=== PATIENT | male | born 1990 | race Caucasian/White ===

== ENCOUNTER 2016-08-24 19:57 | Emergency (ER) | payer OTHER ==
[~2016-08-24] VITALS: Ht 180.3 cm; Wt 83.6 kg
[~2016-08-24 19:57] MED LIST: ALBUAER19 INH
[2016-08-24 20:12] VITALS: TEMP 37.5; Ht 180.3 cm; Wt 83.6 kg
[2016-08-24] MEDS ORDERED: ACET-1256 PO (20:40)
[2016-08-24] MEDS ORDERED: IBUP-1050 PO (20:40)
[2016-08-24] MEDS ORDERED: OXYCODONE HCL IR 5 MG TAB (IMMEDIATE RELEASE) PO STA (20:47)
--- NOTE | 2016-08-24 21:21 | DIAGNOSTIC IMAGING REPORT ---
L-SPINE MIN 4 VIEWS ROUTINE CLINICAL HISTORY: Low back pain radiating down right lower extremity. COMPARISON: None FINDINGS: Alignment of the lumbar spine is anatomic. Vertebral body heights are maintained. There is no fracture or suspicious lesion. Disc spaces are preserved. IMPRESSION: Unremarkable lumbar spine radiographs. Electronically signed by: Chema Rosenberg M.D. 08/24/2016 9:19 PM Dictated Date/Time: 08/24/2016 9:18 PM
[2016-08-24] MEDS ORDERED: MoRPHine SULFATE 10 MG/ML CARP/VIAL IM STA (21:36)
[2016-08-24] MEDS ORDERED: OXYCODONE IR HOME PACK PO STA (22:27)
[2016-08-24] MEDS ORDERED: OXYC1TAB3 PO (22:30)
[2016-08-24] MEDS ORDERED: PRED50TA PO (22:31)
--- NOTE | 2016-08-24 22:32 | EMERGENCY ROOM VISIT NOTE ---
History First contact with patient: 20:14 Chief Complaint: BACK PAIN Stated Complaint: BACK PAIN History of Present Illness The patient is a 25 year old male who presents to the Emergency Room via private vehicle accompanied by female significant other with complaints of " back pain". 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 About 1 year ago it worsened and then within the past few weeks it is progressively getting worse to a point where he cannot sit or stand or even sleep without pain. He points to the lumbar spine, particularly the right portion as a location of his pain that radiates down the right leg. He rates the pain as a 6 -7/10. He notes associated numbness in the right leg. He is recently moved back from [place], and does not have any primary care here. He currently rates the pain as a 10/10. He denies any fevers, chills, chest pain, shortness of breath, lower extremity weakness, bowel or bladder incontinence, numbness or tingling in the genital region. He additionally notes that he did have an MRI in the past of which she is unsure of the results, and he did perform physical therapy and was to have spinal surgery but this did not go through. He denies any urinary symptoms. Review of Systems A complete 10-point Review of Systems was discussed with the patient, with pertinent positives and negatives listed in the History of Present Illness. All remaining Review of Systems questions can be considered negative unless otherwise specified. Past Medical/Surgical History Appendicitis, 2008 Family History Unremarkable Social History Smoking Status: Current Every Day Smoker Drug Use: cocaine Occupation Status: employed Social History: Patient lives with girlfriend and admits to tobacco use but denies alcohol use. Current/Historical Medications Scheduled Prednisone (Prednisone), 50 MG PO DAILY Scheduled PRN Acetaminophen (Tylenol), 1,000 MG PO Q6H PRN for Pain Ibuprofen (Advil), 800 MG PO Q8 PRN for Pain Oxycodone Immediate Rel Tab (Roxicodone Ir), 1-2 TAB PO Q4H PRN for Severe Pain Allergies Coded Allergies: No Known Allergies (Verified , 05/04/12) Physical Exam Vital Signs Date Time Temp Pulse Resp B/P Pulse Ox O2 Delivery O2 Flow Rate FiO2 08/24/16 22:38 91 18 110/66 95 1/16/17 20:12 37.5 108 16 126/74 98 Room Air Physical Exam VITAL SIGNS - Vital signs and nursing notes were reviewed. Patient is afebrile , normotensive at 126/74, he is tachycardic at a rate of 108 bpm, he is saturating well on room air 98%. GENERAL -25-year-old male appearing his stated age who is in no acute distress. Communicates well with provider and answers questions appropriately. SKIN - Without rashes. The skin overlying the lumbar region is unremarkable. HEAD - NC/AT. EYES - Sclera anicteric. Palpebral conjunctiva pink and moist with no injection noted. EARS - No deformities of external structures noted on gross examination bilaterally. NOSE - Midline and without cyanosis. MOUTH/OROPHARYNX - Without perioral cyanosis. NECK - Neck with FROM. Supple to palpation. LUNGS - Chest wall symmetric without accessory muscle use, intercostals retractions, or central cyanosis. Normal vesicular breath sounds CTA B/L. No wheezes, rales, or rhonchi appreciated. CARDIAC - RRR with S1/S2. No murmur, rubs, or gallops appreciated. ABDOMEN - Abdominal contour without pulsations or visible masses. BS normoactive all four quadrants. No tenderness, palpable masses, hepatosplenomegaly, or ascites noted. EXTREMITIES - No clubbing or peripheral cyanosis. No pretibial edema present. Patient is vascularly intact in the extremities. +5/5 strength noted in UE/LE bilaterally. MUSCULOSKELETAL: There is tenderness to palpation overlying the right gluteal region. NEUROLOGIC - Cranial nerves II through XII grossly intact. Sensory intact to light touch throughout. Patellar reflexes +2/4. Medical Decision & Procedures ER Provider Diagnostic Interpretation: L-SPINE MIN 4 VIEWS ROUTINE CLINICAL HISTORY: Low back pain radiating down right lower extremity. COMPARISON: None FINDINGS: Alignment of the lumbar spine is anatomic. Vertebral body heights are maintained. There is no fracture or suspicious lesion. Disc spaces are preserved. IMPRESSION: Unremarkable lumbar spine radiographs. Electronically signed by: Chema Rosenberg M.D. 08/24/2016 9:19 PM Dictated Date/Time: 08/24/2016 9:18 PM Medications Administered Medications (Trade) Dose Ordered Sig/Kishor Route Start Time Stop Time Status Last Admin Dose Admin Oxycodone HCl (Roxicodone Immediate Rel Tab) 5 mg NOW STAT PO 08/24/16 20:47 08/24/16 20:49 DC 08/24/16 21:01 5 MG Prednisone (PredniSONE TAB) 50 mg NOW STAT PO 08/24/16 20:47 08/24/16 20:49 DC 08/24/16 21:00 50 MG Morphine Sulfate (MoRPHine SULFATE INJ) 8 mg NOW STAT IM 08/24/16 21:36 08/24/16 21:38 DC 08/24/16 21:45 8 MG Oxycodone HCl (Roxicodone Immediate Rel 5MG Home Pack) 1 homepack UD STAT PO 08/24/16 22:27 08/24/16 22:28 DC 08/24/16 22:35 [facility] Decision Patient was seen and evaluated as above. After obtaining a thorough history and physical examination I did want to obtain interval imaging to obtain baseline for the patient. L-spine radiographs were obtained. I do not feel an MRI is warranted at this time. I did want to do baseline labs on the patient however he declined an IV. These were initially ordered but I went and talked with him and he was then standing in the room and apologized but wanted to know if there was a different way to approach this without an IV. He was afraid of needles. He was given 5 mg of OxyIR by mouth as well as 50 mg of prednisone. He was reevaluated and noted to not be experiencing any relief therefore 8 mg of morphine IM was ordered and the patient noted that he was okay with this. He was reassessed and noted to be feeling much better and even said that he was feeling better prior to the injection/just before was given. Radiograph results are negative. I do believe the patient is experiencing likely a bulging disc of the lumbar spine without any emergent or surgical nature to it at this given time. I do believe he can follow up with a medical collections specialist for this. He did seem happy with plan of care and a short-term pain prescription for OxyIR 5 mg and prednisone was sent to his pharmacy. A home pack of OxyIR was given. No red flags were identified in the [place] drug monitoring system. He was educated upon worrisome symptoms in which to return, had questions answered prior to discharge and was discharged home in good condition. He is to call the medical collections specialist number provided first thing tomorrow morning for follow-up. In evaluation and treatment of this patient the following differential diagnoses were entertained: Low back pain with radiculopathy, lumbar strain, herniated nucleus pulposis, herniated disc, cauda equina syndrome, among others. I do not suspect cauda equina syndrome or any emergent cause at this time. [place] Drug Monitoring Program Search Results: patient reviewed within database, no issues identified Impression Primary Impression: Lumbar back pain with radiculopathy affecting right lower extremity Departure Information Dispostion Home / Self-Care Condition GOOD Prescriptions Prednisone (Prednisone) 50 Mg Tab 50 MG PO DAILY for 4 Days, #4 TAB Prov: Raghav Carpenter PA-C 08/24/16 Oxycodone Immediate Rel Tab (ROXICODONE IR) 5 Mg Tab 1-2 TAB PO Q4H Y for Severe Pain, #20 TAB Initial treatment Prov: Raghav Carpenter PA-C 08/24/16 Referrals No Doctor, Assigned (PCP) Joe Do D.O. Patient Instructions My [facility] Additional Instructions You have been treated in the Emergency Department for Back Pain. You have received pain medicine in the emergency department which impairs your ability to operate a vehicle. It is illegal for you to drive after receiving these medicines. You have been prescribed Oxy IR to be used for pain control. This is a narcotic medication. You cannot drive or consume alcohol while on this medicine. This medicine should only be used for pain that cannot be controlled with over-the- counter pain medicines. Please consider using a stool softener with this medication to help with any constipation. You have been prescribed Prednisone 50 mg to be taken orally once a day for the next 4 days. This is an anti-inflammatory medicine to be used to help minimize your symptoms. You should take the COMPLETE course of the medication. For pain control, you can use the following dyyf-gam-rcolios medicines (if >12 yo): - Regular strength (325mg/tab) Tylenol (acetaminophen) 2 tabs every 4-6 hours as needed. Do not exceed 12 tablets in a 24 hour period. Avoid taking more than 4 grams (4000 mg) of Tylenol per day. This includes any other sources of acetaminophen you may take on a regular basis. - Regular strength (200 mg/tab) Advil (ibuprofen) 1-2 tabs every 4-6 hours as needed. Do not exceed a dose of 3200 mg per day. If this is an acute injury, ice can be applied to the area of pain for the first 3 days to help decrease pain and inflammation. After the first 3 days, a heating pad can be used over the area for continued soothing relief. You should schedule a follow-up appointment in 2-3 days with your Primary Care Provider for further evaluation and treatment of your back pain. You've been provided the number for a medical collections specialist. Please call this number first thing tomorrow morning to schedule follow-up. Return to the Emergency Department if your current symptoms worsen despite treatment course outlined above, or if you develop any of the following symptoms : intractable pain despite aforementioned treatment course, loss of control of your bowel or bladder, numbness or tingling in your groin, or development of a fever. Please return to the emergency department with any new/concerning symptoms.
[2016-08-24 22:38] VITALS: BP 110/66; PULSE 91; O2SAT 95
== END 2016-08-24 22:38 | disposition home or self-care (01) ==
LOC: C.EDB 19:58 → C.EDD 22:38
DX: M54.5 Low back pain (principal); F17.200 Nicotine dependence, unspecified, uncomplicated

== ENCOUNTER 2016-12-07 16:17 | Emergency (ER) | payer OTHER ==
[~2016-12-07] VITALS: Ht 182.9 cm; Wt 78.1 kg
[~2016-12-07 16:17] MED LIST changes: +ACET-1256 PO; -ALBUAER19 INH; +IBUP-1050 PO; +OXYC1TAB3 PO
[2016-12-07 16:24] VITALS: TEMP 36.7; Ht 182.9 cm; Wt 78.1 kg
[2016-12-07] MEDS ORDERED: TRAM-10 PO (17:35)
[2016-12-07] MEDS ORDERED: CYCL10TA6 PO (17:35)
[2016-12-07] MEDS ORDERED: METH4PAK PO (17:35)
[2016-12-07 17:40] VITALS: BP 115/66; PULSE 102; O2SAT 96
--- NOTE | 2016-12-07 17:51 | EMERGENCY ROOM VISIT NOTE ---
History First contact with patient: 17:21 Chief Complaint: BACK PAIN Stated Complaint: BACK PAIN History of Present Illness The patient is a 26 year old male who presents to the Emergency Room with complaints of an injury to his back while lifting furniture this morning. He now reports tightness in the back and pain radiating down the right lower extremity to the foot. The patient reports a prior history of back problems. He was seen in the emergency department in August, and followed up with PAMELLA Gutierrez approximately one week later. The patient reports that he underwent approximately 4 weeks of physical therapy with improvement of his symptoms. He was told that if his symptoms did not improve, they would try to authorize an MRI of his back. The patient currently denies any right lower extremity weakness, saddle anesthesias or difficulty/incontinence of urine/ stool. He rates his discomfort an 8 out of 10. Review of Systems 10 system review was performed and was negative except for pertinent positives and negatives as indicated in history of present illness Past Medical/Surgical History Medical Problems: (1) Asthma, Unspecified (2) Cocaine Abuse-Unspec (3) Nicotine Dependence, Unspecified, Uncomplicated Surgical Problems: (1) History of appendectomy Family History Unremarkable Social History Smoking Status: Current Every Day Smoker Alcohol Use: none Drug Use: cocaine Housing Status: lives with family Occupation Status: employed Current/Historical Medications Scheduled Cyclobenzaprine Hcl (Flexeril), 10 MG PO TID Methylprednisolone (Medrol Dosepak), 0 PO DAILY Scheduled PRN Acetaminophen (Tylenol), 1,000 MG PO Q6H PRN for Pain Ibuprofen (Advil), 800 MG PO Q8 PRN for Pain Oxycodone Immediate Rel Tab (Roxicodone Ir), 1-2 TAB PO Q4H PRN for Severe Pain Tramadol (Ultram), 1-2 TAB PO Q4H PRN for Pain Allergies Coded Allergies: No Known Allergies (Verified , 05/04/12) Physical Exam Vital Signs Date Time Temp Pulse Resp B/P Pulse Ox O2 Delivery O2 Flow Rate FiO2 12/07/16 17:40 102 16 115/66 96 Room Air 12/07/16 16:24 36.7 104 18 115/74 100 Room Air Pain Rating (0-10): 5.0 Physical Exam CONSTITUTIONAL: Healthy and well nourished. Alert and oriented X 3 with positive affect. Patient does not appear in any acute distress on exam. HEENT: Normocephalic, atraumatic. Pupils equal, round and reactive. NECK: Full active range of motion without discomfort. RESPIRATORY: Clear to auscultation bilaterally with no wheezing, crackles, rhonchi or stridor. CARDIOVASCULAR: Regular rate and rhythm with no murmurs, rubs or gallops. GASTROINTESTINAL: Bowel sounds present in all quadrants. Soft and nontender to palpation. MUSCULOSKELETAL: Patient has mild tenderness to palpation through the right lower lumbar paraspinous muscle and SI joints. Negative logroll. Negative sitting straight leg raise. Pedal pulses are intact. Ankle plantar/ dorsiflexion strength is 5 out of 5 and symmetric bilaterally. INTEGUMENTARY: No rash or other significant dermatologic conditions noted. NEUROLOGIC: No focal neurologic deficits noted. Right foot and toes are sensory intact. Deep tendon reflexes are 2+ and symmetric bilaterally. Medical Decision & Procedures ED Course Patient history and physical exam were performed. Nurse's notes were reviewed. His string clinical exam are most consistent with a right lumbar radiculitis. Do not suspect that the patient had a mechanism of injury to cause a fracture , therefore x-rays were not performed. I did encourage the patient to intermittently apply ice to the lower back. Ibuprofen and Tylenol in alternating fashion for baseline pain relief. The patient was provided prescriptions for Ultram, Medrol Dosepak and Flexeril. He was instructed to follow-up with his PCP for further management, returning to the emergency department for any significantly worsening pain, saddle anesthesias, foot drop or other bladder/bowel difficulties/incontinence. The patient voiced understanding of all discharge instructions, was happy with plan of care, and rated his pain a 5 out of 10 at the conclusion of my exam. Medical Decision See previous section Impression Primary Impression: Lumbar radicular pain Departure Information Dispostion Home / Self-Care Prescriptions Cyclobenzaprine Hcl (FLEXERIL) 10 Mg Tab 10 MG PO TID for spasm, #20 TAB Prov: Jorge Montanez PA 12/07/16 Tramadol (Ultram) 50 Mg Tab 1-2 TAB PO Q4H Y for Pain, #20 TAB For Initial Treatment Prov: Jorge Montanez PA 12/07/16 Methylprednisolone (MEDROL DOSEPAK) 4 Mg [place] 0 PO DAILY, #1 PKT Prov: Jorge Montanez PA 12/07/16 Forms HOME CARE DOCUMENTATION FORM, IMPORTANT VISIT INFORMATION Patient Instructions My [facility] Additional Instructions Intermittently apply ice to lower back. Ibuprofen 800 mg and/or Tylenol 1000 mg every 8 hours. You may also alternate these medications for more effective pain relief: Ibuprofen --4 HRS--> Tylenol --4 HRS--> ibuprofen --4 HRS--> Tylenol .... Ultram if needed for worse pain. Take Flexeril (muscle relaxer) as needed for back tightness. Complete Medrol Dosepak as prescribed. Follow-up with your PCP for further management. Return to the emergency department for any developing an significant right lower extremity weakness, numbness of your genital region or incontinent of urine/stool.
== END 2016-12-07 17:44 | disposition home or self-care (01) ==
LOC: C.EDB 16:21 → C.EDA 17:44
DX: M54.16 Radiculopathy, lumbar region (principal); J45.909 Unspecified asthma, uncomplicated; F17.210 Nicotine dependence, cigarettes, uncomplicated; F14.10 Cocaine abuse, uncomplicated